=== PATIENT | male | born 1960 | race Caucasian/White ===

== ENCOUNTER 2017-10-01 09:34 | Emergency (ER) | payer OTHER ==
[~2017-10-01] VITALS: Ht 180.3 cm; Wt 97.6 kg
[2017-10-01 09:41] VITALS: TEMP 36.7; Ht 180.3 cm; Wt 97.6 kg
[2017-10-01] MEDS ORDERED: PSEU120T21 PO (10:13)
[2017-10-01] MEDS ORDERED: PRED10TA PO (10:13)
--- NOTE | 2017-10-01 10:32 | DIAGNOSTIC IMAGING REPORT ---
R KNEE 3 VIEWS CLINICAL HISTORY: Fall, R knee and east pain trauma. Pain. COMPARISON: None. DISCUSSION: The bones and joint spaces appear intact. There is no evidence of fracture, dislocation or bony disease. There is a small joint effusion with what is possibly a small fat fluid level. CT of the knee is suggested to exclude an occult cortical fracture. IMPRESSION: 1. Mild soft tissue edema with a small joint effusion. 2. Possibility of a small fat fluid level is considered. 3. CT of the knee is suggested to exclude an occult/nonvisualized cortical fracture. The above report was generated using voice recognition software. It may contain grammatical, syntax or spelling errors. Electronically signed by: Saturnino Weiss M.D. 10/01/2017 10:31 AM Dictated Date/Time: 10/01/2017 10:30 AM
--- NOTE | 2017-10-01 10:33 | DIAGNOSTIC IMAGING REPORT ---
R TIBIA/FIBULA 2 VIEWS ROUTINE CLINICAL HISTORY: Fall, right knee and east pain. COMPARISON: None FINDINGS: No acute fracture of the right tibia or fibula is identified. A few ossicles along the medial malleolus reflect old injury. Talar dome is intact. IMPRESSION: No acute fracture of the right tibia or fibula. Electronically signed by: Bill Ames M.D. 10/01/2017 10:31 AM Dictated Date/Time: 10/01/2017 10:30 AM
--- NOTE | 2017-10-01 11:26 | DIAGNOSTIC IMAGING REPORT ---
R LOWER EXTREMITY WITHOUT HISTORY: 56 years-old Male Fall, R knee pain acute posttraumatic right knee pain COMPARISON: Right knee and tibia/fibula radiographs of same day TECHNIQUE: Multiple axial CT images of the right knee were obtained without the use of IV contrast. Coronal and sagittal reformatted images were obtained from the axial data set and were submitted for review. Additional 3-D rendering images were generated from a separate workstation. A dose lowering technique was used consistent with the principals of ALARA. FINDINGS: There is mild subcutaneous edema about the knee, most pronounced anterolaterally. Small knee joint effusion with trace lipohemarthrosis. There is acute mildly impacted fracture about the anterolateral tibial plateau measuring 2.4 x 2.6 cm in AP and transverse dimension with 5 mm cortical depression. The medial tibial plateau appears intact. There is mild cortical indentation of the sulcus terminalis lateral femoral condyle image 24 series 301. Proximal fibula and patella appear intact. Mild tricompartmental joint space narrowing with marginal spurring. No additional acute fracture or dislocation. Study is not tailored to assess the intrinsic ligaments and tendons of the knee. IMPRESSION: 1. Acute mildly impacted fracture of the anterior aspect lateral tibial plateau with cortical depression of 5 mm. 2. Mild cortical indentation of the sulcus terminalis of the lateral femoral condyle suggests subtle acute cortical impaction fracture. 3. Small lipohemarthrosis. 4. Mild tricompartmental osteoarthritis about the knee. The above report was generated using voice recognition software. It may contain grammatical, syntax or spelling errors. Electronically signed by: Esteban Becerra M.D. 10/01/2017 11:25 AM Dictated Date/Time: 10/01/2017 11:06 AM
--- NOTE | 2017-10-01 11:30 | EMERGENCY ROOM VISIT NOTE ---
History First contact with patient: 09:52 Chief Complaint: KNEEPAIN Stated Complaint: FALL/ R KNEE PAIN, SWELLING History of Present Illness The patient is a 56 year old male who presents to the Emergency Room via ambulance complaints of "fall/right knee pain, swelling". The patient states that earlier today around 830 he was stepping around a [employer] trailer when he stepped on the one metal piece causing him to slip and fall in his legs got caught and when he fell he injured his bilateral legs. He now notes scrapes the left leg as well as right knee pain. He rates the overall right knee pain is a 2/10 currently. He declined pain medication. He notes his tetanus is up- to-date. Review of Systems A complete 6-point Review of Systems was discussed with the patient, with pertinent positives and negatives listed in the History of Present Illness. All remaining Review of Systems questions can be considered negative unless otherwise specified. Past Medical/Surgical History No pertinent. Family History No pertinent. Social History Smoking Status: Never Smoker Patient lives locally. Current/Historical Medications Scheduled Prednisone (Prednisone), 30 MG PO QAM Pseudoephedrine-Guaifenesin (Mucinex D), 600 MG PO UD Physical Exam Vital Signs Date Time Temp Pulse Resp B/P (MAP) Pulse Ox O2 Delivery O2 Flow Rate FiO2 10/01/17 12:14 76 20 123/76 99 10/01/17 10:39 78 20 122/71 98 Room Air 10/01/17 09:41 36.7 80 20 126/76 95 Room Air Physical Exam VITAL SIGNS - Vital signs and nursing notes were reviewed. Stable. Afebrile. GENERAL -56-year-old male appearing his stated age who is in no acute distress. Nontoxic. Communicates well with provider and answers questions appropriately. SKIN -there are abrasions noted overlying the patient's left anterior lower leg. No lacerations noted. There is also erythema and edema about the right anterior knee joint without evidence of integument disruption. HEAD - NC/AT. EXTREMITIES - No clubbing or peripheral cyanosis. No pretibial edema present. Tenderness about the right anterior knee joint. No clicking or laxity noted. Left lower extremity with abrasions as above. He is neurovascularly intact in the distal right lower extremity. +5/5 strength noted in UE/LE bilaterally. NEUROLOGIC - Cranial nerves II through XII grossly intact. PSYCH - Pt is very pleasant and interacts well with examiner. Medical Decision & Procedures ER Provider Diagnostic Interpretation: R KNEE 3 VIEWS CLINICAL HISTORY: Fall, R knee and east pain trauma. Pain. COMPARISON: None. DISCUSSION: The bones and joint spaces appear intact. There is no evidence of fracture, dislocation or bony disease. There is a small joint effusion with what is possibly a small fat fluid level. CT of the knee is suggested to exclude an occult cortical fracture. IMPRESSION: 1. Mild soft tissue edema with a small joint effusion. 2. Possibility of a small fat fluid level is considered. 3. CT of the knee is suggested to exclude an occult/nonvisualized cortical fracture. The above report was generated using voice recognition software. It may contain grammatical, syntax or spelling errors. Electronically signed by: Saturnino Weiss M.D. 10/01/2017 10:31 AM Dictated Date/Time: 10/01/2017 10:30 AM R LOWER EXTREMITY WITHOUT HISTORY: 56 years-old Male Fall, R knee pain acute posttraumatic right knee pain COMPARISON: Right knee and tibia/fibula radiographs of same day TECHNIQUE: Multiple axial CT images of the right knee were obtained without the use of IV contrast. Coronal and sagittal reformatted images were obtained from the axial data set and were submitted for review. Additional 3-D rendering images were generated from a separate workstation. A dose lowering technique was used consistent with the principals of ALARA. FINDINGS: There is mild subcutaneous edema about the knee, most pronounced anterolaterally. Small knee joint effusion with trace lipohemarthrosis. There is acute mildly impacted fracture about the anterolateral tibial plateau measuring 2.4 x 2.6 cm in AP and transverse dimension with 5 mm cortical depression. The medial tibial plateau appears intact. There is mild cortical indentation of the sulcus terminalis lateral femoral condyle image 24 series 301. Proximal fibula and patella appear intact. Mild tricompartmental joint space narrowing with marginal spurring. No additional acute fracture or dislocation. Study is not tailored to assess the intrinsic ligaments and tendons of the knee. IMPRESSION: 1. Acute mildly impacted fracture of the anterior aspect lateral tibial plateau with cortical depression of 5 mm. 2. Mild cortical indentation of the sulcus terminalis of the lateral femoral condyle suggests subtle acute cortical impaction fracture. 3. Small lipohemarthrosis. 4. Mild tricompartmental osteoarthritis about the knee. The above report was generated using voice recognition software. It may contain grammatical, syntax or spelling errors. Electronically signed by: Esteban Becerra M.D. 10/01/2017 11:25 AM Dictated Date/Time: 10/01/2017 11:06 AM R TIBIA/FIBULA 2 VIEWS ROUTINE CLINICAL HISTORY: Fall, right knee and east pain. COMPARISON: None FINDINGS: No acute fracture of the right tibia or fibula is identified. A few ossicles along the medial malleolus reflect old injury. Talar dome is intact. IMPRESSION: No acute fracture of the right tibia or fibula. Electronically signed by: Bill Ames M.D. 10/01/2017 10:31 AM Dictated Date/Time: 10/01/2017 10:30 AM Medical Decision Patient was seen and evaluated as above in room A8. Review was performed of nursing notes and vital signs. After obtaining a thorough history and physical examination the above work up was performed. He presents to us today status post fall with right anterior knee pain. X-ray was obtained. Results as above. This prompted a CT scan per radiographic recommendation/clinical concern. This revealed a tibial plateau fracture as well as potential distal femur fracture. I discussed this with the attending physician and subsequently the on-call orthopedic doctor, Dr. Gonzales. We discussed how the patient will be made nonweightbearing with crutches, and is to be placed in the immobilizer splint. He would like the patient to follow-up in his office tomorrow. I believe this is reasonable. Patient was instructed to call and explain he is to be seen tomorrow. Patient declined pain medication. He was educated upon worrisome symptoms which to return as well as regarding risk of compartment syndrome. The patient was educated upon management, had questions answered prior to discharge, and was discharged home in good condition. Case was discussed with the attending physician. In the evaluation and treatment of this patient, the following differential diagnoses were considered: Patellar Fracture, Tibial Plateau Fracture, Distal Femur Fracture, ACL Injury, PCL Injury, Collateral Ligament Injury, Pes Anserine Bursitis, Maisonneuve Fracture. Impression Primary Impression: Fall Additional Impression: Tibial plateau fracture, right Departure Information Dispostion Home / Self-Care Condition GOOD Referrals Neeraj Milner D.O. (PCP) Demetrius Gonzales M.D. Patient Instructions ED Compartment Syndrome At Risk For, [facility] Additional Instructions You have been treated in the Emergency Department for Knee Pain. You have a tibial plateau fracture Please read the handout regarding compartment syndrome. For pain control, you can use the following [id number] medicines (if >12 yo): - Regular strength (325mg/tab) Tylenol (acetaminophen) 2 tabs every 4-6 hours as needed. Do not exceed 12 tablets in a 24 hour period. Avoid taking more than 3 grams (3000 mg) of Tylenol per day. This includes any other sources of acetaminophen you may take on a regular basis. - Regular strength (200 mg/tab) Advil (ibuprofen) 1-2 tabs every 4-6 hours as needed. Do not exceed a dose of 3200 mg per day. If this is a recent injury (<24 hrs), ice can be applied to the area of pain for the first 3 days to help decrease pain and inflammation. Ice massages can be performed by freezing water in a paper cup, peeling back the cup to expose the ice and then massaging over the affected area. You have been provided the number for an Orthopaedic Surgeon. You should call this number as soon as possible to establish a follow-up visit from today's Emergency Department visit. When you call please state that we discussed your case with him today and he wants to see you tomorrow in his office. Keep the knee brace in place until cleared by Orthopedics. Use the crutches you have been provided to keep ALL weight off of the knee. Return to the Emergency Department if your current symptoms worsen despite treatment course outlined above. R LOWER EXTREMITY WITHOUT HISTORY: 56 years-old Male Fall, R knee pain acute posttraumatic right knee pain COMPARISON: Right knee and tibia/fibula radiographs of same day TECHNIQUE: Multiple axial CT images of the right knee were obtained without the use of IV contrast. Coronal and sagittal reformatted images were obtained from the axial data set and were submitted for review. Additional 3-D rendering images were generated from a separate workstation. A dose lowering technique was used consistent with the principals of BERNARDO. FINDINGS: There is mild subcutaneous edema about the knee, most pronounced anterolaterally. Small knee joint effusion with trace lipohemarthrosis. There is acute mildly impacted fracture about the anterolateral tibial plateau measuring 2.4 x 2.6 cm in AP and transverse dimension with 5 mm cortical depression. The medial tibial plateau appears intact. There is mild cortical indentation of the sulcus terminalis lateral femoral condyle image 24 series 301. Proximal fibula and patella appear intact. Mild tricompartmental joint space narrowing with marginal spurring. No additional acute fracture or dislocation. Study is not tailored to assess the intrinsic ligaments and tendons of the knee. IMPRESSION: 1. Acute mildly impacted fracture of the anterior aspect lateral tibial plateau with cortical depression of 5 mm. 2. Mild cortical indentation of the sulcus terminalis of the lateral femoral condyle suggests subtle acute cortical impaction fracture. 3. Small lipohemarthrosis. 4. Mild tricompartmental osteoarthritis about the knee. The above report was generated using voice recognition software. It may contain grammatical, syntax or spelling errors. Electronically signed by: Esteban Becerra M.D. 10/01/2017 11:25 AM Dictated Date/Time: 10/01/2017 11:06 AM Problem Qualifiers
[2017-10-01 12:14] VITALS: BP 123/76; PULSE 76; O2SAT 99
== END 2017-10-01 12:16 | disposition home or self-care (01) ==
LOC: C.EDA 09:37
DX: S82.141A Displaced bicondylar fracture of right tibia, initial encounter for closed fracture (principal); M79.89 Other specified soft tissue disorders; W01.0XXA Fall on same level from slipping, tripping and stumbling without subsequent striking against object, initial encounter

== ENCOUNTER → 2017-10-06 | Outpatient (CLI) | payer OTHER ==
[~2017-10-06] MED LIST: PRED10TA PO; PSEU120T21 PO
--- NOTE | 2017-10-06 08:08 | DIAGNOSTIC IMAGING REPORT ---
R LOWER EXT JOINT WITHOUT CLINICAL HISTORY: RIGHT KNEE ACL/MCL/PCL TEAR trauma TECHNIQUE: Multiaxial MRI acquisition COMPARISON STUDY: CT 10/01/2017 FINDINGS: Mild cortical impaction anterior aspect lateral tibial plateau. Has minimal degree of impaction is 4 mm. Signal characteristics the remaining osseous structures are unremarkable. There is a high-grade partial tear anterior cruciate ligament. There is partial tear femoral insertion posterior cruciate ligament. Considerable soft tissue edematous changes seen about the region of the cruciate ligaments and intercondylar region. There is small joint effusion. Patellar articulating surface is intact. Dilation of menisci demonstrates a horizontal tear posterior horn medial meniscus. This extends to the meniscal apex and inferior meniscal surface. The lateral meniscus is intact.. The lateral meniscus is unremarkable. IMPRESSION: 1. Cortical impaction anterior aspect lateral tibial plateau. 2. Maximum depression is 4 mm. 3. High-grade partial tears tibial insertion anterior cruciate ligament as well as femoral insertion posterior cruciate ligament. 4. Focal tear posterior horn medial meniscus with extension to the inferior meniscal surface as well as meniscal apex. The above report was generated using voice recognition software. It may contain grammatical, syntax or spelling errors. Electronically signed by: Saturnino Weiss M.D. 10/06/2017 8:06 AM Dictated Date/Time: 10/06/2017 7:58 AM
== END | disposition home or self-care (01) ==
LOC: C.MRI 06:46
PROVIDERS: ATTEND Orthopaedic Surgery Sports Medicine
DX: S83.511A Sprain of anterior cruciate ligament of right knee, initial encounter (principal); S83.411A Sprain of medial collateral ligament of right knee, initial encounter; S83.241A Other tear of medial meniscus, current injury, right knee, initial encounter; X58.XXXA Exposure to other specified factors, initial encounter

== ENCOUNTER 2019-02-08 10:12 | Inpatient (IN) ==
--- NOTE | 2019-01-14 10:41 | Anesthesiology Consultation ---
Date of Service January 14, 2019 Assessment & Plan (1) Encounter for pre-operative examination: Chart Review Chart Review: Pending: Refer to Additional Notes / Consult section (pending preop testing (labs, EKG, CXR)) and Patient seen in Pre Admission Testing Teaching & Discussion Pre-Anesthesia Teaching/Discussion Notes: Instructed NPO after midnight before surgery,except medications with 15 cc of water. Medication instructions provid ed according to the PAT guidelines. History Surgery Operation Date: 02/08/19 07:00 Proposed Procedures p Right Total Knee Replacement - Demetrius Gonzales MD Height/Weight Height: 5 ft 11 in Weight: 98.7 kg Allergies Allergy/AdvReac Type Severity Reaction Status Date / Time Penicillins AdvReac Severe Unknown Verified 01/14/19 10:40 childhood reaction Medications Home Medications Medication Instructions Recorded Confirmed Last Taken guaifenesin [Mucinex] 600 mg PO Q12H PRN 01/07/19 01/07/19 Unknown Past Medical History Medical History Hypoglycemia no issues x years Obesity Exercise / Class Metabolic Activity III < 4 Walking/Shop/Light housework Past Family History Family History Father Family history of diabetes mellitus Grandmother (Paternal) Family history of diabetes mellitus Past Surgical History Surgical History Hx of colonoscopy Hx of vasectomy Past Anesthesia History No Hx of Anesthesia Complications (except PONV x 1 episode) and No Family Hx of Anesthesia Complications History of PONV No Hx of Motion Sickness and History of PONV (x 1 episode) Social History Smoking Status: Never smoker Do You Dip or Chew Tobacco: No Hx Alcohol Use: No Hx Substance Use: No Review of Systems Chronic, non-productive dry cough (allergy related per patient). Patient denies chest pain, shortness of breath, wheezing, palpitations. Physical Exam Vital Signs VITALS BP 135/89 P 66 TEMP 97.9 SP02 97%RA RESP 16 PHYSICAL Full neck and c-spine range of motion. Full TMJ range of motion. TMD 3.5 finger breaths Mallampati Score 2 Dentition: intact, several crowns on molars Lungs: mildly diminished breath sounds Cardiac: regular rate and rhythm, no murmurs noted Spine: normal Carotid arteries: negative bruit Extremities: no edema
--- NOTE | 2019-01-14 12:42 | XRay Report ---
TWO VIEW CHEST CLINICAL HISTORY: Preoperative examination. FINDINGS: PA and lateral chest radiographs are obtained. No prior studies are available for compariso n at the time of dictation. The cardiomediastinal silhouette is unremarkable. The lungs and pleura l spaces are clear. There is no pneumothorax. The bony thorax appears intact. IMPRESSION: No active disease in the chest. Electronically signed by: Stephane Rosales M.D. 01/14/2019 12:41 PM
[2019-01-14 13:04] LABS: Basophils # (auto) 0.03 K/uL (0-0.2); Basophils % (auto) 0.3 %; Eosinophils # (auto) 0.47 K/uL (0-0.5); Eosinophils % (auto) 5.3 %; Hematocrit (blood only) 45.9 % (42-52); Hemoglobin 15.7 g/dL (14.0-18.0); Immature Granulocytes # (auto) 0.01 K/uL (0.00-0.02); Immature Granulocytes % (auto) 0.1 %; Lymphocytes # (auto) 1.95 K/uL (1.2-3.4); Mean Corpuscular Hgb Conc 34.2 g/dL (32-36); Mean Corpuscular Volume 90.5 fL (80-100); Mean Platelet Volume 9.8 fL (7.4-10.4); Monocytes # (auto) 0.64 K/uL (0.11-0.59); Monocytes % (auto) 7.2 %; Neutrophils # (auto) 5.78 K/uL (1.4-6.5); Neutrophils % (auto) 65.1 %; Platelet Count 284 K/uL (130-400); RDW Coefficient of Variation 13.4 % (11.5-14.5); RDW Standard Deviation 43.9 fL (36.4-46.3); Red Blood Count 5.07 M/uL (4.7-6.1); White Blood Count 8.88 K/uL (4.8-10.8)
[2019-01-14 13:16] LABS: INR 1.1 (0.9-1.1); Partial Thromboplastin Time 27.1 Seconds (21.0-31.0); Prothrombin Time 11.4 Seconds (9.0-12.0)
[2019-01-14 13:23] LABS: BUN Creatinine Ratio 12.4 (10-20); Creatinine Clr Calc Pharmacy 99.2 ml/min; Est GFR (African American) 99.9; Est GFR (Non-African American) 86.2; Potassium 4.5 mmol/L (3.5-5.1)
--- NOTE | 2019-02-04 12:54 | History and Physical Report ---
DATE OF ADMISSION: 02/08/2019 CHIEF COMPLAINT: Persistent right knee pain, discomfort and instability. HISTORY OF PRESENT ILLNESS: A 58-year-old gentleman who presents for treatment of his right knee. He initially injured his knee back about a year and a half ago when he was working at the [employer]. This is September of last year. He was to step in across the trailer frame and got his foot caught and fell and sustained a hyperextension twisting injury to his knee. He had a significant injury at that time including a lateral tibial plateau fracture along with an ACL, PCL and MCL injury. We treated conservatively and he has done pretty well, but continued to have persistent pain and discomfort. His knee gets tired and gives out intermittently. He is concerned about falling. Does swell up on intermittently. He has taken various medicines with minimal relief. He would like to proceed with surgical treatment. PAST MEDICAL HISTORY: 1. Gastroesophageal reflux disease. 2. Mild obesity, BMI 31. PAST SURGICAL HISTORY: Include: 1. Vasectomy. 2. Multiple colonoscopies. ALLERGIES: PENICILLIN, REACTIONS UNKNOWN. CURRENT MEDICATIONS: Include various NSAIDs. No prescription meds. SOCIAL HISTORY: A 58-year-old male. He is very active. Lives in [place]. Does not smoke. FAMILY HISTORY: Noncontributory. REVIEW OF HISTORY: Negative for diabetes, neurologic problem, vascular problem, bleeding disorders. Denies any chest pain or shortness of breath. No history of DVT or PE. No known bleeding problems. PHYSICAL EXAMINATION: GENERAL: Shows a pleasant, middle-aged male, looks to be in pretty good health. HEENT: Benign. NECK: Supple, no lymphadenopathy. LUNGS: Clear to auscultation. HEART: Regular rate and rhythm. ABDOMEN: Soft, nontender, nondistended. EXTREMITIES: Grossly neurovascularly intact except as follows. Examination of the right knee reveals the patient ambulates independently. He does limps a little bit on the side. He has got fairly neutral alignment to his knee. He has got a chronic prepatellar bursitis, which is fairly small. There are no signs of infection. He has got a small knee effusion. Range of motion about 10 degrees short of full extension and 20 degrees of flexion. He has got a positive Janna. I cannot really get him to pivot. He does have a grade 2 posterior drawer and some mild laxity to valgus stress testing at 30 degrees. No varus instability. No pain with hip motion. X-RAYS: X-rays of the right knee reviewed. Shows advanced medial compartment DJD. He has got complete loss of his medial joint space with osteophytes off the medial femoral condyle and medial tibial plateau. He has got some chondrocalcinosis laterally. Some mild patellofemoral disease. It does look like he has got a Evens-Stieda lesion from his MCL injury. ASSESSMENT: A 58-year-old male with fairly advanced arthritis in his right knee with a remote history of an ACL, PCL, MCL injury. He has failed conservative treatment and would like to have his right knee replaced. PLAN: We will take him to the operating room and do right total knee replacement. The risks and benefits of this procedure were explained to the patient including but not limited to DVT, PE, , infection, neurological injury, vascular injury, bleeding problem, pain, limited range of motion, stiffness, failure to relieve symptoms, incomplete relief of symptoms, need for further surgery in future, fracture, leg length inequality, nerve palsy, need for revision surgery. The patient understands and desires to proceed. Informed consent was obtained. Due to his MCL laxity, we might have to put a PS plus insert in. We will be prepared for that. As far as discharge plans, he should be able to be discharged home.
[~2019-02-08 10:12] MED LIST changes: +ACETAMINOPHEN 500 MG TAB PO SCH; +BUPIVACAINE 0.5 % 5 MG/1 ML PF 10ML VIAL ONE; +BUPIVACAINE LIPOSOME/PF 266 MG, BUPIVACAINE/EPINEPHRINE 50 ML, SODIUM CHLORIDE 0.9% 30 ... INFIL SCH; +BUPIVACAINE/EPINEPHRINE 0.25% 1:200,000 30 ML VIAL ONE; +CEFAZOLIN 2000MG 2,000 MG/15 ML SYR IV SCH; +DEXAMETHASONE SOD INJ 4 MG/ML VIAL ONE; +FAMOTIDINE 20 MG TAB PO SCH; +GABAPENTIN 600 MG DOSE PO SCH; +LR 500ML BOLUS IV SCH; +LR 60ML/HR IV SCH; +METOCLOPRAMIDE HCL 10 MG TABLET PO SCH; -PRED10TA PO; -PSEU120T21 PO; +SCOPOLAMINE 1.5 MG TDSY TD SCH; +TRANEXAMIC ACID 1,000 MG **IV Intra-op IV SCH
--- NOTE | 2019-02-08 10:48 | History & Physical Bridge Note ---
Date of Service February 08, 2019 History & Physical Bridge Note I have examined the patient, reviewed the History & Physical and in the interval since the performance of the History & Physical I have noted the following changes of clinical significance: no changes noted
[2019-02-08] MEDS ORDERED: PROPOFOL IV EMULSION 10 MG/ML 20 ML VIAL IV ONE ×2 (11:55→13:50)
[2019-02-08] MEDS ORDERED: MIDAZOLAM HCL 1 MG/ML 2ML VIAL ONE ×2 (11:56→13:32)
[2019-02-08] MEDS ORDERED: fentaNYL citrate 100 MCG/2 ML VIAL ONE (11:56)
[2019-02-08] MEDS ORDERED: ePHEDrine sulfate 50 MG/ML AMP IV PRN (12:23)
[2019-02-08] MEDS ORDERED: fentaNYL citrate 100 MCG/2 ML VIAL IV PRN (12:23)
[2019-02-08] MEDS ORDERED: ATROPINE SULFATE 0.1 MG/ML 10ML SYR IV PRN (12:23)
[2019-02-08] MEDS ORDERED: ONDANSETRON INJ 2 MG/ML 2 ML VIAL IV PRN ×2 (12:23→15:57)
[2019-02-08] MEDS ORDERED: SODIUM CHLORIDE 0.9% PF 50 ML VIAL ONE (13:06)
[2019-02-08] MEDS ORDERED: BUPIVACAINE LIPOSOME 1.3% 266 MG/20 ML VIAL ONE (13:06)
[2019-02-08] MEDS ORDERED: BUPIVACAINE/EPINEPHRINE 0.25% 1:200,000 30 ML VIAL ONE (13:06)
[2019-02-08] MEDS ORDERED: BACITRACIN INJ 50,000 UNIT VIAL ONE (13:06)
[2019-02-08] MEDS ORDERED: ONDANSETRON INJ 2 MG/ML 2 ML VIAL ONE (13:30)
[2019-02-08] MEDS ORDERED: DEXAMETHASONE SOD INJ 4 MG/ML VIAL ONE (13:30)
--- NOTE | 2019-02-08 15:03 | Post Operative Brief Note ---
PG Immediate Post Op with CF Date of Surgery February 08, 2019 Pre & Post Diagnosis Operation Date: 02/08/19 12:30 Pre-Op Diagnosis: Right Knee Degenerative Joint Disease; Knee Pain Post-Op Diagnosis: Right Knee Degenerative Joint Disease; Knee Pain I identified the patient and participated in the time-out.: Yes Procedure Operation Date: 02/08/19 12:30 Actual Procedures p Right Total Knee Replacement(Right) - Demetrius Gonzales MD Surgeon Demetrius Gonzales MD Data Entry Specialist Krista, [facility] Estimated Blood Loss 50 Findings Consistent with Post-Op Diagnosis Fluids 1700 cc Specimens Specimen Description: Permanent Specimen: A) Right Knee Bone and Tissue Drains Garcia Catheter Anesthesia Type Spinal MAC Complications none Disposition Accompanied Patient To Recovery: No Disposition: Recovery Room
--- NOTE | 2019-02-08 15:25 | XRay Report ---
XR knee RT 1 or 2V routine CLINICAL HISTORY: Postoperative study. Degenerative arthritis. COMPARISON: 10/01/2017 DISCUSSION: There are postsurgical changes of a total right knee arthroplasty and patellar resurfacin g. The femoral tibial components appear well seated. There are overlying skin isha. There is gas p resent within the soft tissues and joint consistent with recent surgery. IMPRESSION: Postsurgical changes of a total right knee arthroplasty. Electronically signed by: Tremayne Frederick M.D. 02/08/2019 3:24 PM
[2019-02-08] MEDS ORDERED: MAGNESIUM HYDROXIDE SUSP 30 ML UDC PO PRN (15:57)
[2019-02-08] MEDS ORDERED: NALOXONE HCL 0.4 MG/1 ML VIAL/CARP IV PRN (15:57)
[2019-02-08] MEDS ORDERED: OXYCODONE HCL IR 5 MG TAB (IMMEDIATE RELEASE) PO PRN (15:57)
[2019-02-08] MEDS ORDERED: bisacodyL 10 MG SUPP PR PRN (15:57)
[2019-02-08] MEDS ORDERED: TAMSULOSIN HCL 0.4 MG CAP PO PRN (15:57)
[2019-02-08] MEDS ORDERED: METOCLOPRAMIDE HCL INJ 5 MG/ML 2 ML VIAL IV PRN (15:57)
[2019-02-08] MEDS ORDERED: ALUMINUM/MAGNESIUM SUSP 30 ML UDC PO PRN (15:57)
[2019-02-08] MEDS ORDERED: guaiFENesin 600 MG TABCR PO PRN (15:57)
[2019-02-08] MEDS ORDERED: HYDROmorphone INJ 0.5 MG/0.5 ML SYR IV PRN (15:57)
--- NOTE | 2019-02-08 16:23 | Anesthesiology Progress Note ---
Date of Service February 08, 2019 Anesthesia Post Procedure Vital Signs Vital Signs: Temp Pulse Pulse Resp BP Pulse Ox 02/08/19 16:00 36.8 C 80 16 112/73 97 02/08/19 15:40 36.2 C L 84 18 109/76 98 02/08/19 15:30 100 H 23 120/67 97 02/08/19 15:20 95 H 15 98/73 L 100 02/08/19 15:10 36.2 C L 100 H 19 119/61 100 02/08/19 10:34 36.6 C 95 H 18 148/90 H 97 Pain Intensity Right Knee: Pain Intensity: 2 Transfer of Care Handoff Completed per policy Notes Mental Status: alert / awake / arousable Patient Amnestic to Procedure: Yes Nausea / Vomiting: adequately controlled Pain: adequately controlled Airway Patency, RR, SpO2: stable & adequate BP & HR: stable & adequate Hydration State: stable & adequate Neuraxial Anesthesia: was administered and sensory block is resolving Anesthetic Complications: no major complications apparent
--- NOTE | 2019-02-08 17:47 | Operative Report ---
Post Operative Report Pre & Post Diagnosis Operation Date: 02/08/19 12:30 Pre-Op Diagnosis: Right Knee Degenerative Joint Disease; Knee Pain Post-Op Diagnosis: Right Knee Degenerative Joint Disease; Knee Pain I identified the patient and participated in the time-out.: Yes Procedure Operation Date: 02/08/19 12:30 Actual Procedures p Right Total Knee Replacement(Right) - Demetrius Gonzales MD Surgeon Demetrius Gonzales MD Valve Repairer Krista, PAC Estimated Blood Loss 50 Findings Consistent with Post-Op Diagnosis Operative findings revealed advanced right knee DJD with fairly extensive grade 4 changes medial compartment and patellofemoral compartments. Some spotty changes laterally. He had a chronic ACL and PCL deficient knee. Moderate-sized joint effusion. Fluids 1700 cc Specimens Right knee sent for pathology. Drains None. 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 He had an ACL, PCL, MCL injury. He also had some early degenerative arthritis at that time. We treated him conservatively and he get did okay but continued to have persistent pain and discomfort in his knee and a sense of instability. X-rays show progressive loss of medial joint space. He elected to with surgical treatment. Description of Procedure Operative implants consisted of: 1. Biomet Vanguard size 70 right posterior stabilized femoral component. 2. Biomet Vanguard size 79 tibial tray. 3. 10 mm posterior stabilized polyethylene insert. 4. 34 x 8.5 all poly-patella. Patient was taken to the operating room identified and placed on the operating table supine position with all contact areas were properly padded. IV antibiotics were provided by anesthesia team. Spinal anesthetic had been implemented holding area. Garcia catheter was placed in a sterile fashion. Right thigh tip was then placed in the right lower extremities and prepped draped in usual sterile fashion. The right leg was elevated and exsanguinated with use of an Esmarch interspace at 300 mmHg. An anterior approach to the right knee was then performed to a longitudinal incision centered of the patella. Sharp dissection was cut through subcutaneous tissue down below the extensor mechanism. A medial parapatellar arthrotomy incision was made. There was a significant prepatellar bursitis which I did excise as well. Some subperiosteal dissection was carried out medially. The fat pad was resected from beneath patella tendon. The lateral patellofemoral ligaments were released. Patella was subluxated laterally and the knee was flexed. The remnants of the ACL and PCL were then released from the distal femur and the tibia subluxated anteriorly. The external tibial alignment jig was then placed in the interface of tibia and adjusted 14 mm medially. Proximal tibial cut was made to take about 3 to 4 mm of bone from the medial side. Tibia sized to a size 79. Attention drawn the femur. Per the disc femur was then with a sharp drill. Intramedullary canal was suction. A right 6 degree valgus cutting guide was placed but this femoral cutting block was pinned in place. Distal femoral cut was made to take an additional 3 mm of bone off the distal femur. Femur was then sized to a size 70. We did down size this about half a size. The AP cutting block was pinned parallel to the epicondylar axis which was 3 degrees of external rotation. The anterior cut, anterior chamfer, posterior cut, posterior chamfer cuts were made. Box cutting guide was placed to just slightly lateral and the box cut was made. The knee was flexed with the remnants of medial lateral menisci were excised with the osteophytes taken off the posterior aspect of the femur. A trial femoral form was placed but the tibial tray was pinned in maximum external rotation and the drill and stem punch were used to create defect in the proximal tip for the tibial tray. The knee was then trialed and the 10 mm insert fit most appropriately. Attention drawn the patella. Patella was cleaned of all soft tissue. Patella thickness measured 25 mm in thickness was cut down to 15. Was sized to a size 34 patella. Locals were drilled for the 34 patella. The lateral osteophyte was removed. Patella was placed. Knee was taken through range of motion patella tracked nicely with no thumbs test. Attention then drawn to place the permanent components. All trial implants were removed. Bone plug was placed in the disc femur limit blood loss put a double batch Palacos G cement was mixed. BiomFingerprintguard size 70 right posterior bifemoral component, a size 79 tibial tray, 10 mm posterior bite polyethylene insert, and a 34 by a Nubia all poly-patella then cement in place. Knees brought out in full extension until cement hardened. Final cement check was then performed. Pericapsular tissues were injected with total of 100 cc of combination of 20 cc of Exparel, 30 cc of normal saline and 50 cc of half percent Marcaine with epinephrine. Patient did receive 1 g of tranexamic acid per the tourniquet was then let down for final tourniquet time 57 minutes. Hemostasis should use electrocautery. Wounds once again irrigated. Extensor macros then closed with combination 1 PDS suture #1 Vicryl suture in [id number] fashion. The extensor macros was checked and found to be intact the subtenons tissue then closed with 2 Dexon suture in a buried interrupted fashion. Skin was closed with skin isha. Leg was then cleaned dried and sterile dressing composed of Xeroform, 4 x 4's, sterile cast padding, Tonny bandage were applied. Patient then transferred to the recovery room in stable condition. Patient tolerated procedure well and there were no complications I attest to the content of the Intraoperative Record and any orders documented therein. Any exceptions are noted below.
[2019-02-08] MEDS: ASCORBIC ACID 500 MG TAB PO SCH (18:13)
[2019-02-08] MEDS: KETOROLAC 30 MG/ML VIAL IV SCH (18:13)
[2019-02-08] MEDS: FERROUS GLUCONATE 324 MG TAB PO SCH (18:13)
[2019-02-08] MEDS: CHECK SCOPOLAMINE PATCH PLACEMENT SCH (18:14)
[2019-02-08] MEDS ORDERED: TRANEXAMIC ACID 1,000 MG in 0.9 % SODIUM CHLORIDE 100 ML IV SCH (21:00)
[2019-02-08] MEDS: ASPIRIN 81 MG ECTAB PO SCH (21:14)
[2019-02-08] MEDS: DOCUSATE SODIUM 100 MG CAP PO SCH (21:14)
[2019-02-08] MEDS: TAPENTADOL HCL ER 50 MG TABCR PO SCH (21:14)
[2019-02-08] MEDS: SENNA 8.6 MG TAB PO SCH (21:14)
[2019-02-08] MEDS: SODIUM CHLORIDE 0.9% 1000ML 1,000 ML IV SCH (21:15)
[2019-02-08] MEDS: ACETAMINOPHEN 500 MG TAB PO SCH (22:38)
[2019-02-08] MEDS: CEFAZOLIN 2000MG 2,000 MG/15 ML SYR IV SCH (22:38)
[2019-02-09] MEDS: SODIUM CHLORIDE 0.9% 1000ML 1,000 ML IV SCH (00:06)
[2019-02-09] MEDS: KETOROLAC 30 MG/ML VIAL IV SCH ×4 (00:37→19:15)
[2019-02-09] MEDS: CHECK SCOPOLAMINE PATCH PLACEMENT SCH (00:37)
[2019-02-09] MEDS: ACETAMINOPHEN 500 MG TAB PO SCH ×3 (05:04→21:32)
[2019-02-09] MEDS: CEFAZOLIN 2000MG 2,000 MG/15 ML SYR IV SCH (05:04)
[2019-02-09 06:19] LABS: Mean Corpuscular Hemoglobin 30.8 pg (25-34); Mean Corpuscular Hgb Conc 34.2 g/dL (32-36); Mean Platelet Volume 9.5 fL (7.4-10.4); Platelet Count 229 K/uL (130-400); RDW Coefficient of Variation 13.4 % (11.5-14.5); RDW Standard Deviation 44.2 fL (36.4-46.3); Red Blood Count 4.22 M/uL (4.7-6.1); White Blood Count 17.92 K/uL (4.8-10.8)
[2019-02-09 06:53] LABS: BUN Creatinine Ratio 14.6 (10-20); Calcium 8.4 mg/dl (8.5-10.1); Creatinine Clr Calc Pharmacy 101.1 ml/min; Est GFR (African American) 102.4; Est GFR (Non-African American) 88.4; Potassium 4.2 mmol/L (3.5-5.1)
--- NOTE | 2019-02-09 08:05 | Anesthesiology Progress Note ---
Date of Service February 09, 2019 Anesthesia Post Procedure Vital Signs Vital Signs: Temp Pulse Pulse Resp BP BP Pulse Ox 02/09/19 07:45 36.7 C 72 18 124/78 96 02/09/19 04:00 36.6 C 100 H 16 131/87 93 02/08/19 23:42 36.8 C 92 H 15 115/69 95 02/08/19 18:56 36.7 C 77 16 128/84 99 02/08/19 18:00 36.4 C L 81 18 135/88 99 02/08/19 16:51 36.5 C 78 16 120/78 95 02/08/19 16:25 36.6 C 80 18 117/73 98 02/08/19 16:00 36.8 C 80 16 112/73 97 02/08/19 15:40 36.2 C L 84 18 109/76 98 02/08/19 15:30 100 H 23 120/67 97 02/08/19 15:20 95 H 15 98/73 L 100 02/08/19 15:10 36.2 C L 100 H 19 119/61 100 02/08/19 10:34 36.6 C 95 H 18 148/90 H 97 Pain Intensity Right Knee: Pain Intensity: 2 Notes Mental Status: alert / awake / arousable and participated in evaluation Patient Amnestic to Procedure: Yes Nausea / Vomiting: adequately controlled Pain: adequately controlled Airway Patency, RR, SpO2: stable & adequate BP & HR: stable & adequate Hydration State: stable & adequate Neuraxial Anesthesia: was administered and sensory block resolved Anesthetic Complications: no major complications apparent and Pt Satisfied with anesthetic care
[2019-02-09] MEDS: FERROUS GLUCONATE 324 MG TAB PO SCH ×2 (08:44→19:15)
[2019-02-09] MEDS: ASPIRIN 81 MG ECTAB PO SCH ×2 (08:44→21:33)
[2019-02-09] MEDS: MULTIVITAMIN TAB PO SCH (08:44)
[2019-02-09] MEDS: DOCUSATE SODIUM 100 MG CAP PO SCH ×2 (08:44→21:34)
[2019-02-09] MEDS: TAPENTADOL HCL ER 50 MG TABCR PO SCH ×2 (08:44→21:37)
[2019-02-09] MEDS: ASCORBIC ACID 500 MG TAB PO SCH ×2 (08:44→19:14)
--- NOTE | 2019-02-09 08:59 | Progress Note ---
DATE: 02/09/2019 SUBJECTIVE: A 58-year-old gentleman postop day 1 from right knee replacement. He is doing pretty well. Had a pretty good night. Pain is reasonably well controlled. No chest pain or shortness of breath. Not feeling dizzy or lightheaded. OBJECTIVE: VITAL SIGNS: Temperature 36.7. Vital signs stable. GENERAL: Shows a pleasant, middle-aged male. He is sitting up in bed, looks pretty comfortable. LUNGS: Clear to auscultation. HEART: Regular rate and rhythm. ABDOMEN: Soft, nontender and nondistended. EXTREMITIES: Grossly neurovascularly intact except as follows. Examination of the right leg reveals the dressing to be clean, dry, and intact. He has been reinforced with an Tonny bandage. He can do a straight leg raise. He can dorsiflex and plantarflex his foot appropriately. He is neurologically intact. LABORATORY DATA: Hemoglobin 13.0. Hematocrit 38.0. White cell count 17.92. Electrolytes are stable. ASSESSMENT: A 58-year-old gentleman postop day 1 from right knee replacement, doing pretty well. Pain is controlled. Little bloody drainage which is unexpected. White cell count elevated, likely related to stress. No signs of infection. PLAN: 1. DVT prophylaxis including thigh-high TEDs, SCDs, and aspirin twice a day. 2. PT/OT. Weight bear as tolerated. Right total knee protocol. 3. Pain control, doing well with current pain regimen. 4. Disposition: Plan to discharge to home likely with some home health once adequately recovered and medically stable.
[2019-02-09] MEDS: SENNA 8.6 MG TAB PO SCH (21:34)
[2019-02-10] MEDS: KETOROLAC 30 MG/ML VIAL IV SCH ×3 (00:27→11:07)
[2019-02-10] MEDS: ACETAMINOPHEN 500 MG TAB PO SCH (05:13)
--- NOTE | 2019-02-10 07:47 | Progress Note ---
DATE: 02/10/2019 SUBJECTIVE: A 58-year-old gentleman postop day 2 from right knee replacement. He is doing pretty well. Pain is controlled. No chest pain or shortness of breath. Not feeling dizzy or lightheaded. OBJECTIVE: VITAL SIGNS: Temperature 36.7. Vital signs stable. GENERAL: Shows a pleasant, middle-aged male. He is sitting up in bed, looks comfortable. EXTREMITIES: Examination of the right leg reveals the dressing to be in place. A little bit of bloody drainage at the inferior aspect. Calf is soft and supple. He can dorsiflex and plantarflex his foot appropriately. He is neurologically intact. ASSESSMENT: A 58-year-old gentleman postop day 2 from right knee replacement, doing pretty well. Pain is controlled. PLAN: 1. DVT prophylaxis including thigh-high TEDs, SCDs, and aspirin twice a day. 2. PT/OT. Weight bear as tolerated. Right total knee protocol. 3. Pain control, doing pretty well with current pain regimen. 4. Disposition: Plan to discharge to home with some home health later today.
[2019-02-10] MEDS: ASPIRIN 81 MG ECTAB PO SCH (08:37)
[2019-02-10] MEDS: DOCUSATE SODIUM 100 MG CAP PO SCH (08:37)
[2019-02-10] MEDS: ASCORBIC ACID 500 MG TAB PO SCH (08:37)
[2019-02-10] MEDS: MULTIVITAMIN TAB PO SCH (08:37)
[2019-02-10] MEDS: FERROUS GLUCONATE 324 MG TAB PO SCH (08:37)
[2019-02-10] MEDS: TAPENTADOL HCL ER 50 MG TABCR PO SCH (08:39)
--- NOTE | 2019-02-15 00:52 | Discharge Summary ---
ADMITTING PHYSICIAN AND SURGEON: Dr. Demetrius Gonzales. ADMITTING DIAGNOSIS: Right knee degenerative joint disease. SURGERY PERFORMED: Right total knee arthroplasty. SECONDARY DIAGNOSES: Gastroesophageal reflux disease and mild obesity. CONSULTS: None obtained. HISTORY AND PHYSICAL EXAMINATION: Well documented in the patient's chart. HOSPITAL COURSE: The patient was admitted on 02/08/2019, underwent total knee arthroplasty, tolerated the procedure well. There were no complications. He was transferred to the PACU postoperatively and later to the orthopedic floor for further care. He was given Ancef for antibiotic prophylaxis, SUDHIR stockings, SCDs and aspirin for DVT prophylaxis. Hemoglobin, hematocrit and vital signs were monitored during his hospital stay and remained stable, did not require any blood transfusions. There were no complications. By postoperative day 2, he was tolerating a regular diet, pain was controlled with oral pain medicine. He was participating in physical therapy. By postop day 2, he was discharged home, set up with home health services. He was given printed discharge instructions as well as new prescriptions for extra strength Tylenol, aspirin and oxycodone. Continue his home medicines. Continue physical therapy, weightbearing as tolerated, SUDHIR stockings. Follow up approximately 2 weeks postop or sooner if there are any problems or concerns.
== END 2019-02-10 11:32 | disposition home health service (06) | DRG 470 ==
LOC: ASU 10:12 → 3E 15:06